=== PATIENT | female | born 1955 | race Caucasian/White ===

== ENCOUNTER 2017-07-31 07:49 | Day surgery (SDC) | payer OTHER ==
[2017-07-31] MEDS ORDERED: ACETAZOLAMIDE 250 MG PO ONE (08:03)
[2017-07-31] MEDS: PHENYLEPHRINE HCL 10% OPHTHAL SOL ONE ×2 (08:21→08:32)
[2017-07-31] MEDS: PROPARACAINE HCL 0.5% OPHTHALMIC SOL ONE ×3 (08:21→09:30)
[2017-07-31] MEDS: CYCLOPENTOLATE 1% SOL ONE ×2 (08:22→08:33)
[2017-07-31] MEDS: KETOROLAC 0.5% OPTH 60 DROP SOL ONE ×2 (08:22→08:33)
[2017-07-31] MEDS ORDERED: MIDAZOLAM 2 MG/2 ML SOL ONE (09:10)
[2017-07-31] MEDS ORDERED: FENTANYL 100MCG/2ML SOL ONE (09:10)
[2017-07-31] MEDS ORDERED: POVIDONE IODINE 5% SOL ONE (09:24)
[2017-07-31] MEDS ORDERED: TRIAMCINOLONE ACETONIDE 10 MG/ML VIAL ONE (09:24)
[2017-07-31] MEDS ORDERED: BSS 500 ML 500 ML IR ONE (09:24)
[2017-07-31] MEDS ORDERED: LIDOCAINE HCL 1% MPF SOL ONE (09:24)
[2017-07-31] MEDS ORDERED: CEFUROXIME SODIUM/0.9% NACL/PF 10 MG/ML VIAL IO ONE (09:24)
[2017-07-31 10:07] VITALS: RESP 20; TEMP 97.9
[2017-07-31 10:20] VITALS: BP 146/86; PULSE 60; O2SAT 98
== END 2017-07-31 10:25 | disposition home or self-care (01) | DRG 125 ==
LOC: SURG 07:49
PROVIDERS: ATTEND Ophthalmology
DX: H25.9 Unspecified age-related cataract (principal)
CPT/HCPCS: J2250; J3010; A9270-GY; J0697; J2001; J3300